=== PATIENT | male | born 1965 | race Caucasian/White ===

== ENCOUNTER 2016-09-02 00:56 | Emergency (ER) | payer OTHER ==
[~2016-09-02] VITALS: Ht 170.2 cm; Wt 86.7 kg
[~2016-09-02 00:56] MED LIST: ADVAIR 250/501 DISK IH; ALBUTEROL SULF8.5 GM IH; Ceftin PO; LEVAQUIN750 MG PO; NOHOMEMEDS; PREDNISONE20 MG PO; Proventil,Ventolin H IH; ZITHROMAX Z-PA250 MG PO
[2016-09-02 02:14] VITALS: BP 189/112
== END 2016-09-02 02:18 | disposition home or self-care (01) ==
LOC: EME 00:56 → EXP 00:56
DX: S39.012A Strain of muscle, fascia and tendon of lower back, initial encounter (principal); X50.9XXA Other and unspecified overexertion or strenuous movements or postures, initial encounter; Y99.0 Civilian activity done for income or pay; F17.200 Nicotine dependence, unspecified, uncomplicated
CPT/HCPCS: 99281; 99284